=== PATIENT | female | born 1965 | race Caucasian/White ===

== ENCOUNTER → 2016-04-08 | Outpatient (CLI) | payer BC, OTHER, SELFPAY ==
[~2016-04-08] VITALS: Ht 160 cm; Wt 101.6 kg
[~2016-04-08] MED LIST: LIDOCAINE 2% INJ 100 MG/5 ML SDV (FOR ANES.) As Ordered ONE; NS 1,000 ML IV SCH; PROPOFOL 200 MG/20 ML VIAL As Ordered ONE; SYNT175T2 PO; VITA200028 PO; [UNRECOGNIZED DRUG - OTHER] PO
--- NOTE | 2016-04-08 09:33 | ROOR ---
Patient Name: Vy Saeed Procedure Date: 04/08/2016 9:15 AM Date of : 1965 Age: 50 Room: [facility] Gender: Female Note Status: Finalized Procedure: Colonoscopy Indications: High risk colon cancer surveillance: Personal history of colonic polyps, Last colonoscopy: February 2013. Incidental: (previous colonoscopy with patch of colitis at splenic fx.) Providers: Alex BRANCH MD Referring MD: Marek Villeda MD Requesting Provider: Medicines: Monitored Anesthesia Care Complications: No immediate complications. Procedure: Pre-Anesthesia Assessment: - The heart rate, respiratory rate, oxygen saturations, blood pressure, adequacy of pulmonary ventilation, and response to care were monitored throughout the procedure. The Colonoscope was introduced through the anus and advanced to 8 cm into the ileum. The colonoscopy was performed without difficulty. The patient tolerated the procedure well. The quality of the bowel preparation was excellent. Findings: The perianal and digital rectal examinations were normal. The terminal ileum appeared normal. The entire examined colon appeared normal on direct and retroflexion views. Impression: - The examined portion of the ileum was normal. - The entire colon is normal on direct and retroflexion views. - No specimens collected. Recommendation: - Repeat colonoscopy in 5 years for surveillance based on personal history of previous adenomatous polyps. Alex Branch MD Alex BRANCH MD 04/08/2016 9:33:17 AM This report has been signed electronically. Number of Addenda: 0 Note Initiated On: 04/08/2016 9:15 AM Estimated Blood Loss: Estimated blood loss: none.
[2016-04-08 09:52] VITALS: BP 150/68
== END | disposition home or self-care (01) ==
LOC: M OPP 08:35
PROVIDERS: ATTEND Internal Medicine Gastroenterology
DX: Z12.11 Encounter for screening for malignant neoplasm of colon (principal); Z86.010 Personal history of colon polyps; E03.9 Hypothyroidism, unspecified; R12 Heartburn; R23.3 Spontaneous ecchymoses; M26.609 Unspecified temporomandibular joint disorder, unspecified side; Z88.2 Allergy status to sulfonamides; Z88.1 Allergy status to other antibiotic agents; Z79.899 Other long term (current) drug therapy; Z80.51 Family history of malignant neoplasm of kidney

== ENCOUNTER 2021-07-23 19:02 | Emergency (ER) | payer OTHER ==
[~2021-07-23] VITALS: Ht 160 cm; Wt 106.8 kg
[~2021-07-23 19:02] MED LIST changes: -LIDOCAINE 2% INJ 100 MG/5 ML SDV (FOR ANES.) As Ordered ONE; -NS 1,000 ML IV SCH; -PROPOFOL 200 MG/20 ML VIAL As Ordered ONE
[2021-07-23] MEDS ORDERED: LEVO150T7 PO ×2 (19:34)
[2021-07-23] MEDS ORDERED: LEVO175T2 PO (19:34)
[2021-07-23] MEDS ORDERED: KETOROLAC TROMETHAMINE 10 MG TAB PO ONE (23:30)
[2021-07-23 23:50] VITALS: BP 131/65
== END 2021-07-23 23:52 | disposition home or self-care (01) ==
LOC: M ED 19:02
DX: S83.91XA Sprain of unspecified site of right knee, initial encounter (principal); W22.8XXA Striking against or struck by other objects, initial encounter; Y92.018 Other place in single-family (private) house as the place of occurrence of the external cause; Z79.899 Other long term (current) drug therapy; Z88.1 Allergy status to other antibiotic agents; Z88.2 Allergy status to sulfonamides

== ENCOUNTER 2021-10-14 15:20 | Emergency (ER) | payer OTHER ==
[~2021-10-14] VITALS: Ht 160 cm; Wt 104.4 kg
[~2021-10-14 15:20] MED LIST changes: +LEVO150T7 PO; +LEVO175T2 PO
[2021-10-14 15:21] VITALS: BP 141/68
== END 2021-10-14 15:40 | disposition left against medical advice (07) ==
LOC: M ED 15:20
DX: Z53.29 Procedure and treatment not carried out because of patient's decision for other reasons (principal)

== ENCOUNTER 2021-10-19 09:10 | Emergency (ER) | payer OTHER ==
[~2021-10-19] VITALS: Ht 160 cm; Wt 104.2 kg
[2021-10-19 09:11] VITALS: BP 140/68
== END 2021-10-19 15:15 | disposition left against medical advice (07) ==
LOC: M ED 09:10
DX: Z53.29 Procedure and treatment not carried out because of patient's decision for other reasons (principal)

== ENCOUNTER → 2022-02-21 | Outpatient (CLI) | payer OTHER ==
[~2022-02-21] MED LIST changes: +C-251TAB PO; +ESTR1CAP2 PO; +ISOVUE-300 61% 50ML VIAL ONE; +LIDOCAINE 1% MDV 20ML VIAL ONE; +ROPIvacaine 0.5% 30ML VIAL ONE; +TRIAMCINOLONE ACETONIDE SUSP 40MG/ML 1ML VIAL ONE; +VITA100093 PO; +ZINC220CA PO
== END ==
LOC: M PLAIMG 15:27
PROVIDERS: ATTEND Orthopaedic Surgery
DX: M19.011 Primary osteoarthritis, right shoulder (principal)
CPT/HCPCS: 20610; 76000; J2795; J3301

== ENCOUNTER → 2022-03-09 | Outpatient (CLI) | payer OTHER ==
[~2022-03-09] MED LIST changes: -ISOVUE-300 61% 50ML VIAL ONE; -LIDOCAINE 1% MDV 20ML VIAL ONE; -ROPIvacaine 0.5% 30ML VIAL ONE; -TRIAMCINOLONE ACETONIDE SUSP 40MG/ML 1ML VIAL ONE
== END ==
LOC: M LABSMTC 09:09
PROVIDERS: ATTEND Anesthesiology
DX: Z01.818 Encounter for other preprocedural examination (principal); Z11.52 Encounter for screening for COVID-19

== ENCOUNTER 2022-03-14 09:14 | Day surgery (SDC) | payer OTHER ==
[~2022-03-14] VITALS: Ht 160 cm; Wt 106.2 kg
[~2022-03-14 09:14] MED LIST changes: +NS 1,000 ML IV ONE
[2022-03-14] MEDS ORDERED: propofoL 200 MG/20 ML VIAL As Ordered ONE (11:08)
[2022-03-14] MEDS ORDERED: LIDOCAINE 2% 100MG/5ML SDV (FOR ANES.) As Ordered ONE (11:08)
[2022-03-14 11:40] VITALS: BP 135/81
== END 2022-03-14 11:47 | disposition home or self-care (01) ==
LOC: M OPP 09:14
PROVIDERS: ATTEND Internal Medicine Gastroenterology
DX: Z12.11 Encounter for screening for malignant neoplasm of colon (principal); Z86.010 Personal history of colon polyps; Z80.0 Family history of malignant neoplasm of digestive organs; K63.5 Polyp of colon; K64.8 Other hemorrhoids; Z79.890 Hormone replacement therapy; Z88.1 Allergy status to other antibiotic agents; Z88.2 Allergy status to sulfonamides; E03.9 Hypothyroidism, unspecified; Z80.51 Family history of malignant neoplasm of kidney

== ENCOUNTER → 2022-08-17 | Outpatient (CLI) | payer OTHER ==
[~2022-08-17] MED LIST changes: +ISOVUE-300 61% 100ML VIAL As Ordered ONE; +LIDOCAINE 1% MDV 20ML VIAL As Ordered ONE; -NS 1,000 ML IV ONE; +ROPIvacaine 0.5% 30ML VIAL As Ordered ONE; +TRIAMCINOLONE ACETONIDE SUSP 40MG/ML 1ML VIAL As Ordered ONE
== END ==
LOC: M RAD 13:59
PROVIDERS: ATTEND Orthopaedic Surgery
DX: M19.011 Primary osteoarthritis, right shoulder (principal)
CPT/HCPCS: 20610; 77002; J2795; J3301; Q9967